=== PATIENT | male | born 1955 | race African-American/Black ===

== ENCOUNTER 2017-12-11 06:45 | Emergency (ER) | payer OTHER, MEDICAID ==
[~2017-12-11] VITALS: Ht 172.7 cm; Wt 74.0 kg
[~2017-12-11 06:45] MED LIST: CHLO25TA27 PO; DOXA2TAB2 PO; FLOMAX PO; PENTASA PO; SULFASALAZINE PO; TAMS0.4C31 PO
[2017-12-11 09:43] VITALS: BP 122/72
== END 2017-12-11 10:39 | disposition home or self-care (01) ==
LOC: ER 07:32
DX: J02.9 Acute pharyngitis, unspecified (principal); J06.9 Acute upper respiratory infection, unspecified; I10 Essential (primary) hypertension; C61 Malignant neoplasm of prostate
CPT/HCPCS: 71045; 87070; 87430; 99285